=== PATIENT | female | born 1995 | race African-American/Black ===

== ENCOUNTER 2019-01-26 18:29 | Emergency (ER) | payer MEDICAID ==
[~2019-01-26] VITALS: Ht 167.6 cm; Wt 90.7 kg
[2019-01-26 18:40] VITALS: BP 126/79
--- NOTE | 2019-01-26 18:40 | NUR ---
ED Nurse Note: pt brought by RA from work due to headache and dizziness. no recent injury reported. hx of migrain. AAO x4. respirations even and non-labored noted. skin warm to touch. no open wound noted. on night monitor. will wait for further order.
[2019-01-26] MEDS ORDERED: DiphenhydrAMINE 50mg/ml Inj IVP ONE (18:45)
--- NOTE | 2019-01-26 18:50 | NUR ---
ED Nurse Note: RN confirmed with pt that no change of . per pt, unable to provide urine sample at this time. wants meds before test. pt understand risk of meds.
--- NOTE | 2019-01-26 18:54 | Emergency Room Report ---
History of Present Illness General Chief Complaint: Headache Source: Patient Present Illness HPI This patient states she has a history of recurrent migraines. She states that she on multiple medications for her migraines. She has Elavil for prevention. She also had been using sumatriptan, tramadol and [place]. She states that none of these have worked for her. She is at work today and she suddenly developed nausea, lightheadedness and headache. She states this is consistent with her migraines. She denies trauma. She denies recent illness. She denies fever or chills. She denies vomiting. She denies blurry vision. She has no other complaints. Allergies: Coded Allergies: No Known Allergies (Unverified , 01/26/19) Patient History Past Medical History: see triage record, migraines Social History: Denies: smoking, alcohol use, drug use Last Menstrual Period: 01/22/2019 Reviewed Nursing Documentation: PMH: Agreed; PSxH: Agreed Nursing Documentation-PMH Past Medical History: No History, Except For Review of Systems All Other Systems: negative except mentioned in HPI Physical Exam Vital Signs Date Time Temp Pulse Resp B/P (MAP) Pulse Ox O2 Delivery O2 Flow Rate FiO2 01/26/19 18:25 97.9 104 18 191/118 (142) 99 Room Air Sp02 EP Interpretation: reviewed, normal General Appearance: no apparent distress, alert, GCS 15, non-toxic Head: normocephalic, atraumatic Eyes: bilateral eye normal inspection, bilateral eye PERRL ENT: hearing grossly normal, normal pharynx, no angioedema, normal voice Neck: full range of motion, supple/symm/no masses Respiratory: chest non-tender, lungs clear, normal breath sounds, no respiratory distress, no retraction, no accessory muscle use, speaking full sentences Cardiovascular #1: regular rate, rhythm, no edema Gastrointestinal: normal bowel sounds, non tender, soft, non-distended, no guarding, no rebound Rectal: deferred Musculoskeletal: back normal, gait/station normal, normal range of motion, non- tender Neurologic: alert, oriented x3, responsive, motor strength/tone normal, sensory intact, speech normal Psychiatric: judgement/insight normal, memory normal, mood/affect normal, no suicidal/homicidal ideation Medical Decision Making Diagnostic Impression: Primary Impression: Migraine ER Course This patient is a clinical presentation consistent with migraine. The patient was treated with Compazine, Benadryl and 1 liter of normal saline. The patient had complete resolution of the headache. There were no red flags on physical exam or history. I do not suspect meningitis, intracranial bleed, sinusitis. No emergency medical condition was identified. The patient declined a test and urinalysis. She states she is not sexually active and does not suspect urinary tract infection. The patient was given return precautions and followup instructions. Last Vital Signs Date Time Temp Pulse Resp B/P (MAP) Pulse Ox O2 Delivery O2 Flow Rate FiO2 01/26/19 18:25 97.9 104 18 191/118 (142) 99 Room Air Status: improved Disposition: HOME, SELF-CARE Condition: Improved Patient Instructions: Migraine Headache Rosalba Zapata DO Jan 26, 2019 18:54
--- NOTE | 2019-01-26 19:07 | NUR ---
HAND-OFF: Report given to [facility]RY [facility]. endorsed pending urine collection.
[2019-01-26 20:35] VITALS: BP 126/79
--- NOTE | 2019-01-26 20:35 | NUR ---
ER DISCHARGE NOTE: Patient is cleared to be discharged per ERMD, pt is aox4, on room air, with stable vital signs. pt was given dc and prescription instructions, pt was able to verbalize understanding, pt id band and iv site removed without complications. pt is able to ambulate with steady gait. pt took all belongings.
== END 2019-01-26 20:35 | disposition home or self-care (01) ==
LOC: EDBD 18:29 → EMR 18:44
DX: G43.909 Migraine, unspecified, not intractable, without status migrainosus (principal)
CPT/HCPCS: 96361; 96374; 96375; 99284; J0780; J1200